=== PATIENT | female | born 1985 | race Caucasian/White ===

== ENCOUNTER 2016-11-25 09:35 | Outpatient (CLI) | payer BC | END 2016-11-25 09:36 | disposition home or self-care (01) | DX: R79.89 Other specified abnormal findings of blood chemistry (principal) ==

== ENCOUNTER 2018-01-20 20:52 | Day surgery (SDC) | payer BC ==
[2018-01-20 21:41] LABS: BILIRUBIN,URINE NEGATIVE (NEGATIVE); GLUCOSE, URINE (UA) NEGATIVE (NEGATIVE); KETONES,URINE (UA) NEGATIVE (NEGATIVE); LEUKOCYTE ESTERASE, URINE NEGATIVE (NEGATIVE); NITRITE,URINE NEGATIVE (NEGATIVE); OCCULT BLOOD,URINE NEGATIVE (NEGATIVE); PH,URINE 6.5 PH (5.0-7.5); PROTEIN,URINE NEGATIVE (NEGATIVE); UROBILINOGEN,URINE 0.2 (NORMAL) E.U./dL (NORMAL)
[2018-01-20 21:44] LABS: CLARITY,URINE CLEAR (CLEAR); HCG UR QUAL NEGATIVE
[2018-01-20 22:14] LABS: BASOPHILS # (AUTO) 0.1 10^3/uL (0.0-0.1); BASOPHILS % (AUTO) 0.7 %; EOSINOPHILS # (AUTO) 0.1 10^3/uL (0.0-0.7); EOSINOPHILS % (AUTO) 0.8 %; HGB - HEMOGLOBIN 13.4 g/dL (12.0-16.0); LYMPHOCYTES # (AUTO) 1.6 10^3/uL (1.5-3.5); LYMPHOCYTES % (AUTO) 16.5 %; MEAN CORPUSCULAR HEMOGLOBIN 29.4 pg (27.0-31.0); MEAN CORPUSCULAR HGB CONC 34.4 g/dL (32.0-36.0); MEAN CORPUSCULAR VOLUME 85.4 fL (81.0-99.0); MEAN PLATELET VOLUME 9.1 fL (7.9-10.8); MONOCYTES # (AUTO) 0.6 10^3/uL (0.0-1.0); NEUTROPHILS # (AUTO) 7.1 10^3/uL (1.5-6.6); PLT - PLATELET COUNT 161 10^3/uL (130-450); RED BLOOD COUNT 4.54 10^6/uL (4.20-5.40); RED CELL DISTRIBUTION WIDTH 13.1 % (12.0-15.0); WHITE BLOOD COUNT 9.4 x10^3/uL (4.8-10.8)
[2018-01-20 22:24] LABS: ALBUMIN 4.4 g/dL (3.2-5.5); ALBUMIN/GLOBULIN RATIO 1.8 (1.0-2.2); CALCIUM 9.4 mg/dL (8.5-10.3); CREATININE 0.8 mg/dL (0.4-1.0); TOTAL PROTEIN 6.9 g/dL (6.7-8.2)
--- NOTE | 2018-01-20 23:58 | Ultrasound Report ---
EXAM: PELVIC ULTRASOUND EXAM DATE: 01/20/2018 11:39 PM. CLINICAL HISTORY: Pelvic pain. COMPARISON: Pelvic ultrasound 05/10/2015. TECHNIQUE: Realtime transabdominal pelvic scan, with static image documentation. FINDINGS: Uterus: 7.8 x 4.4 x 5.6 cm, volume 100.6 cc. Anteverted position. Normal overall size and echotexture . Masses: None. Endometrium: 4 mm. Normal. Intrauterine device is in place. Cervix: Unremarkable. Right Ovary: 4.7 x 3.7 x 3.6 cm, volume 33.6 cc. Enlarged right ovary. Arterial blood flow seen in th e right ovary by spectral Doppler. Much of the right ovary does not have blood flow by color Doppler. Central complex cystic area measuring 3 x 1.7 cm in the enlarged right ovary, could be a collapsed c orpus luteum cyst. Differential includes central necrosis. Limited evaluation since no transvaginal i mages obtained. Left Ovary: Possible left ovary measuring 3.5 x 2.9 x 2.8 cm, volume 14.6 cc. Not well seen. Free Fluid: Moderate free fluid seen in the pelvis, appears to have some low level internal echoes. IMPRESSION: 1. Enlarged right ovary. Arterial blood flow seen in the right ovary by spectral Doppler. Much of the right ovary does not have blood flow by color Doppler. Central complex cystic area measuring 3 x 1.7 cm in the enlarged right ovary, could be a collapsed corpus luteum cyst. Differential includes centr al necrosis. Limited evaluation since no transvaginal images obtained. The right ovary is the area of pain for the patient. This could represent a right ovarian torsion versus hemorrhagic corpus luteum cyst/hemorrhagic cyst. Further evaluation could be obtained with transvaginal images or an MR without and with contrast. 2. Left ovary not well seen. 3. Moderate free fluid seen in the pelvis, appears to have some low level internal echoes, mildly com plex. RADIA The above findings were discussed with Dr. Lopez by Dr. Heidy Vaca at 23:51 hrs on 01/20/18. Referring Provider Line: [phone] SITE ID: [id number]
[2018-01-21] MEDS ORDERED: LORazepam 0.5 MG TABLET PO STA
[2018-01-21] MEDS ORDERED: oxyCOD/ACETAMIN 5 MG/325 MG TABLET PO STA
--- NOTE | 2018-01-21 01:15 | Ultrasound Report ---
EXAM: PELVIC ULTRASOUND TRANSVAGINAL EXAM DATE: 01/21/2018 12:47 AM. CLINICAL HISTORY: Pelvic pain. Enlarged right ovary, possible right ovarian torsion. Transvaginal ult rasound to further evaluate. COMPARISON: Pelvic ultrasound 01/20/2018. TECHNIQUE: Realtime transvaginal scan to provide greater detail of the right ovary, with static image documentation. FINDINGS: See the prior pelvic ultrasound report regarding the uterus and the left ovary. Prior trans abdominal images better demonstrate the moderate free fluid. Difficult transvaginal exam. Right Ovary: Large right ovary measuring 8.8 x 5.4 x 9 cm, volume 222.5 cc, appears to contain a hemo rrhagic corpus luteum cyst that measures 4.5 x 4 x 3.8 cm, volume of 39 cc. There is peripheral blood flow at the corpus luteum. There is a paucity of blood flow within much of the enlarged right ovary and these findings are concerning for right ovarian torsion. There appear to be a few follicles in th e right ovary. Free fluid is noted. IMPRESSION: Enlarged right ovary as described above with findings concerning for ovarian torsion. Dif ferential includes dense hematoma causing a masslike appearance adjacent to the right ovary from a ru ptured ovarian cyst. See above. RADIA The above findings were discussed with Dr. Lopez by Dr. eHidy Vaca at 01:06 hrs on 01/21/18. Referring Provider Line: [phone] SITE ID: [id number]
[2018-01-21] MEDS ORDERED: MORPHINE 10 MG/ML VIAL IVP STA (01:17)
--- NOTE | 2018-01-21 01:42 | ED Physician Documentation ---
PD HPI FEMALE - Stated complaint Stated Complaint: ABD PX - Chief complaint Chief Complaint: Abd Pain - History obtained from History obtained from: Patient, Family - History of Present Illness Timing - onset: Today Timing - details: Abrupt onset, Still present Associated symptoms: Abdominal pain, Pelvic pain. No: Vaginal bleeding, Vaginal discharge Contributing factors: No: Similar symptoms before: Has not had sx before Recently seen: Not recently seen - Additional information Additional information: Patient is a 32 year old female with no significant past medical history who is presenting to the emergency department for suprapubic pain. Patient states that it started tonight at rest. Patient reports that when she urinates it causes everything to spasm making everything worse. Patient denies any vaginal bleeding or vaginal discharge. Patient states that she has not had a menstrual cycle in two years. Review of Systems Constitutional: denies: Fever, Chills Eyes: reports: Reviewed and negative Ears: reports: Reviewed and negative Nose: reports: Reviewed and negative Throat: reports: Reviewed and negative Cardiac: reports: Reviewed and negative Respiratory: reports: Reviewed and negative GI: reports: Abdominal Pain. denies: Nausea, Vomiting : reports: Dysuria. denies: Hematuria, Discharge, Vaginal bleeding Skin: denies: Rash, Lesions Neurologic: denies: Generalized weakness, Focal weakness, Numbness Immunocompromised: denies: Immunocompromised PD PAST MEDICAL HISTORY - Past Medical History Past Medical History: Yes GI: Other - Past Surgical History Past Surgical History: No - Allergies Allergies/Adverse Reactions: Allergies Allergy/AdvReac Type Severity Reaction Status Date / Time Sulfa (Sulfonamide Allergy Unknown Verified 01/20/18 21:11 Antibiotics) - Social History Does the pt smoke?: No Smoking Status: Never smoker Does the pt drink ETOH?: No Does the pt have substance abuse?: No PD ED PE NORMAL - Vitals Vital signs reviewed: Yes - General General: Alert and oriented X 3, Well developed/nourished - HEENT HEENT: Atraumatic, PERRL - Neck Neck: Supple, no meningeal sign, No JVD - Cardiac Cardiac: RRR - Respiratory Respiratory: No respiratory distress - Abdomen Abdomen: Soft - Derm Derm: Normal color, No rash - Extremities Extremities: No deformity - Neuro Neuro: Alert and oriented X 3, No motor deficit, No sensory deficit, Normal speech Eye Opening: Spontaneous Motor: Obeys Commands Verbal: Oriented GCS Score: 15 - Psych Psych: Normal mood PD ED PE EXPANDED - General General: Alert, Anxious, In Pain - Abdomen Abdomen: Tender to palpation, Periumbilical, RLQ, Suprapubic Results - Vitals Vitals: Vital Signs - 24 hr 01/20/18 01/21/18 21:07 01:40 Temperature 36.7 C 36.9 C Heart Rate 96 84 Respiratory 18 16 Rate Blood Pressure 142/86 H 126/77 O2 Saturation 98 98 Oxygen O2 Source Room air - Labs Labs: Laboratory Tests 01/20/18 01/20/18 01/20/18 21:35 22:03 22:03 WBC 9.4 RBC 4.54 Hgb 13.4 Hct 38.8 MCV 85.4 MCH 29.4 MCHC 34.4 RDW 13.1 Plt Count 161 MPV 9.1 Neut # 7.1 H Lymph # 1.6 Morris # 0.6 Eos # 0.1 Baso # 0.1 Absolute Nucleated RBC 0.01 Nucleated RBC % 0.1 Sodium 139 Potassium 3.5 Chloride 106 Carbon Dioxide 23 Anion Gap 10.0 BUN 19 Creatinine 0.8 Estimated GFR (MDRD) 84 L Glucose 139 H Calcium 9.4 Total Bilirubin 1.0 AST 31 ALT 51 Alkaline Phosphatase 25 L Total Protein 6.9 Albumin 4.4 Globulin 2.5 Albumin/Globulin Ratio 1.8 Lipase 22 Urine Color YELLOW Urine Clarity CLEAR Urine pH 6.5 Ur Specific [place] 1.020 Urine Protein NEGATIVE Urine Glucose (UA) NEGATIVE Urine Ketones NEGATIVE Urine Occult Blood NEGATIVE Urine Nitrite NEGATIVE Urine Bilirubin NEGATIVE Urine Urobilinogen 0.2 (NORMAL) Ur Leukocyte Esterase NEGATIVE Ur Microscopic Review NOT INDICATED Urine Culture Comments NOT INDICATED Urine HCG, Qual NEGATIVE - Rads (name of study) pelvic ultrasound Radiology: Final report received, Discussed with rads (enlarged right ovary, doppler flow not appreciated, concernging for torsion. ), See rad report PD MEDICAL DECISION MAKING - ED course Complexity details: reviewed old records, reviewed results, re-evaluated patient , considered differential, d/w patient, d/w internal consultant ED course: Patient was seen and examined at bedside. urine was collected and showed no sign of infection. labs were drawn and ultrasound was ordered. When patient returned from imaging the radiologist called and said there were some worrisome signs for torsion or an enlarged ovary. patient had originally not been able to tolerate a transvaginal ultrasound. Patient was treated with percocet and ativan and sent for imaging. When patient returned the findings were again discussed with the radiologist and were worrisome for torsion. window cutter OB, Dr. Lew was contacted and the case was discussed with her. Patient was admitted under her service for further evaluation and care. Departure - Departure Disposition: ED Transfer to [facility] Clinical Impression: Ovarian torsion Condition: Stable
[2018-01-21] MEDS ORDERED: MIDAZOLAM 2 MG/2 ML VIAL IVP ONE (03:00)
[2018-01-21] MEDS ORDERED: NEOSTIGMINE 1 MG/1 ML 10 ML MDV IVP ONE (03:00)
[2018-01-21] MEDS ORDERED: KETOROLAC 30 MG/ML VIAL IVP ONE (03:00)
[2018-01-21] MEDS ORDERED: SUCCINYLCHOLINE 200 MG/10 ML VIAL IVP ONE (03:00)
[2018-01-21] MEDS ORDERED: PROPOFOL 200 MG/20 ML VIAL IVP ONE (03:00)
[2018-01-21] MEDS ORDERED: ONDANSETRON 4 MG/2 ML VIAL IVP ONE (03:00)
[2018-01-21] MEDS ORDERED: GLYCOPYRROLATE 1 MG/5 ML VIAL IVP ONE (03:00)
[2018-01-21] MEDS ORDERED: ROCURONIUM 50 MG/5 ML VIAL IVP ONE (03:00)
[2018-01-21] MEDS ORDERED: DEXAMETHASONE 4 MG/ML VIAL IVP ONE (03:00)
--- NOTE | 2018-01-21 03:03 | PREOP HISTORY & PHYSICAL ---
IDENTIFICATION: A 32-year-old G1, P1-0-0-1, LMP 01/2012. HISTORY OF PRESENT ILLNESS: This is a patient of Rajni Rivera, who presented to [facility] Emergency Department. She was seen by Dr. Lopez. The patient states that she and her and Salvador were having sex this evening when about 20 minutes after they were done, she started having pain in the suprapubic area that was described as cramping. She states that she "never had pain like that before." The patient states that the pain was localized without any radiation. She had an intense period of pain, which was not helped with Aleve. She took a hot bath, which seemed to help a little bit. The patient states that she has tried to feel for her Mirena IUD strings, but could not feel it. She does admit that sometimes she is unable to feel the strings. Unfortunately, due to the pain, she really could not do a good examination. The patient states that the cramping is described as constant and worse with activity, particularly when she bends at the hips. The pain at its worse was rated 10/10. She states that the pain feels like the pain is in her low pelvic area at the level of the pubic bone. She feels like it is at her cervix as well with some direction of the pain going towards her bottom. She did have nausea with significant amount of pain, but did not have any vomiting. She also denied any dysuria, fevers, chills, diarrhea or constipation. She is accompanied today by her , Salvador as well as her 6-year-old daughter, Marie. PAST MEDICAL HISTORY: Nonalcoholic fatty liver. She denies diabetes, hypertension, thyroid disorder, anxiety, depression, or asthma. PAST SURGICAL HISTORY: None. ALLERGIES: SULFA, WHICH SHE HAS HIVES. MEDICATIONS 1. Multivitamin. 2. P.r.n. Aleve for body aches, particularly in the joints. SOCIAL HISTORY: She denies any tobacco, alcohol or illicit drug use. 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 Her is Salvador and they have a 6-year-old daughter, Marie. PAST SURGICAL HISTORY: One spontaneous vaginal delivery at 42 weeks' gestation. Baby weighed 8 pounds 11 ounces. They most likely will not have any more children. PAST GYNECOLOGY HISTORY: The patient denies any abnormal Paps or sexually transmitted diseases. She recently had a Mirena IUD in January 2012 and had it replaced in March 2017. She has not had a menstrual cycle since the original Mirena IUD was placed. The patient recalls, however, that prior to her Mirena IUD insertion she did have monthly menses. Though they are not particularly heavy, they were exquisitely painful. FAMILY HISTORY: She denies any female carcinomas. OBJECTIVE VITAL SIGNS: Temperature is 98.4, heart rate 84, blood pressure 126/77, respirations 16, O2 saturations 98. GENERAL: The patient is a well-developed, well-nourished, female, in no apparent distress. She is alert and oriented x3. ABDOMEN: Soft without any peritoneal signs. She does have some tenderness to palpation. CARDIOVASCULAR: Regular, no murmurs or rubs. LUNGS: Lungs are clear to auscultation bilaterally. EXTREMITIES: No edema. LABORATORY DATA: White count is 9.4, H and H 13.4, hematocrit 38.8, platelet 161, potassium 3.5, BUN 19, creatinine 0.8, glucose 139, AST 31, ALT 51, alkaline phosphatase 25. Urinalysis is normal and the urine hCG is negative. A 01/21/2018 ultrasound reveals a right ovary measuring 8.8 x 5.4 x 9 cm, volume of 222, appears to contain hemorrhagic corpus luteum cyst that measures 4.5 x 4 x 3.8 cm. There is peripheral blood flow at the corpus luteum. There is paucity of blood flow within much of the enlarged right ovary and these findings are concerning for right ovarian torsion. There appears to be few follicles in the right ovary. Moderate free fluid. ASSESSMENT 1. A 32-year-old G1, P1-0-0-1. 2. Abdominal pain, ovarian torsion versus ruptured hemorrhagic cyst. PLAN 1. Discussed with the patient and her , Salvador, my recommendation is to proceed with a diagnostic laparoscopy with possible ovarian cystectomy. I discussed with the patient the risks, benefits, alternatives, indications, expectations of surgery. Included in our discussion were the risks of hemorrhage , infection, and damage to surrounding organs. With respect to damage to surrounding organs, this may be an inadvertent laceration, cauterization or ligation to the adjacent intestines, bladders and ureters. In rare cases, ovarian torsion will result in the of the ovary, which I would perform a unilateral salpingo-oophorectomy. Also, in cases in which hemostasis to the ovary is not possible, I would proceed to a unilateral salpingo-oophorectomy. After all of the patient's questions were answered to her satisfaction, she verbalized her desire to proceed with a diagnostic laparoscopy with possible unilateral ovarian cystectomy. Consent forms have been signed. 2. Anticipate discharging the patient to home after postoperative criteria are met. The patient will have a prescription for ibuprofen for her and I will recommend [id number] Tylenol. A handwritten prescription will be available for the patient specifically for Vicodin for any breakthrough pain she may experience. 3. The patient will see me at [facility] in 2 weeks for routine postop visit. She is to call if she has any worsening fevers, chills, abdominal pain or vaginal bleeding. cc: AMANDA Mcconnell TD: 01/21/2018 03:02 MTDAngelique
[2018-01-21] MEDS ORDERED: BUPIVACAINE 0.25% PF 30 ML VIAL ONE (03:22)
[2018-01-21] MEDS ORDERED: BUPIVACAINE 0.25% PF 30 ML VIAL SUBQ ONE ×2 (03:27)
[2018-01-21] MEDS ORDERED: LACTATED RINGERS 1,000 ML IV ONE ×4 (03:28→04:09)
--- NOTE | 2018-01-21 04:48 | OPERATIVE REPORT ---
Operative Report - Other Other Information/Narrative: Date of Operation: 01/21/2018 Surgeon: Johanna Lew DO FACOG Art Critic: None Lead Die Molder: Niyah Mcallister CRNA Anesthesia: GET Pre-op Dx: 1. 32 2. Abdominal pain Post-op Dx: 1. 32 yo 2. Hemoperitoneum 2. Ruptured left ovarian cyst Procedure: Laparoscopic left ovarian cystectomy Findings: 1. Hemoperitoneum 2. Ruptured left ovarian cyst, no evidence of ovarian torsion 3. Normal appendix 4. Normal liver edge Specimens: Left ovarian cyst wall Drains: None EBL: 400 cc Complications: None Dictation: [id number]
[2018-01-21] MEDS ORDERED: fentaNYL 100 MCG/2 ML VIAL ONE (05:37)
[2018-01-21] MEDS ORDERED: HYDROcod/ACETAM 5/325 MG TABLET ONE (05:59)
[2018-01-21 06:10] VITALS: BP 133/65
--- NOTE | 2018-01-21 07:23 | OPERATIVE REPORT ---
DATE OF OPERATION: 01/21/2018 PREOPERATIVE DIAGNOSES: 1. A 32-year-old G1, P1-0-0-1. 2. Abdominal pain. POSTOPERATIVE DIAGNOSES: 1. A 32-year-old G1, P1-0-0-1. 2. Hemoperitoneum. 3. Ruptured left ovarian cyst. PROCEDURE: Laparoscopic left ovarian cystectomy. SURGEON: Johanna Lew DO, FACOG AUTOMOTIVE ELECTRICAL HELPER: None. UTILITY TENDER CARDING: Martín Santacruz CRNA ANESTHESIA: General endotracheal tube. FINDINGS: 1. Hemoperitoneum. 2. Ruptured left ovarian cyst without any evidence of ovarian torsion. 3. Normal appendix. 4. Normal liver edge. SPECIMENS: Left ovarian cyst wall. DRAINS: None. ESTIMATED BLOOD LOSS: 400 mL COMPLICATIONS: None. BRIEF HISTORY AND INDICATIONS: The patient presented to [facility] Emergency Department with complaints of acute onset of abdominal pain. The patient was seen by Dr. Terry Lopez, which revealed ultrasound findings suspicious for an ovarian torsion. It was also noted that there was a moderate amount of free fluid in the abdomen. I have discussed with Henny the risks, benefits, alternatives, indications, expectations of diagnostic laparoscopy with possible ovarian cystectomy, including the risks were hemorrhage, infection , damage to surrounding organs, which could be an inadvertent laceration, cauterization or ligation of the adjacent intestines, bladder and ureters. In addition, if bleeding was unable to be controlled an oophorectomy may occur. After all the patient's questions were answered to her satisfaction, she verbalized her desire to proceed with surgery. Consent forms have been signed. OPERATION IN DETAIL: The patient was identified and consented, taken to the operating room where IV access was already in place. She was given sequential compression devices which were placed on her legs and turned on. She was then given satisfactory general endotracheal tube anesthesia as per Martín Santacruz. Antibiotics were not indicated in this case. Timeout was performed, which correctly identified the patient, site of procedure and procedure itself. Three laparoscopic port sites were first identified. They were all 5 mm in length in the subumbilical fold, right lower quadrant and left lower quadrant. The two lower quadrant port sites were determined by finding the respective anterior superior iliac spine and then moving two fingerbreadths superior and medial. All three port sites were injected with a total of 0.25% lidocaine without epinephrine. A total of 20 mL were used. Entrance into the abdomen was made directly with a Visiport camera. No trauma to intraabdominal organs were noted. CO2 gas was then used to insufflate the abdomen. Initial inspection of the pelvis showed a large amount of blood in the pelvis. There was active bleeding in a left ovarian cyst at the distal portion of the ovary. The bilateral tubes were within normal limits, as well as the right ovary. The uterus also appeared to be within normal limits. Appendix was visualized and it did not appear to be abnormal. There was normal liver edge and no signs of [id number]. The left ovarian rupture was then dealt with. The ovarian cyst wall was grasped and then shelled out. Bleeding continued to occur within the bed of the ovary. First I attempted to use Surgicel and placed it in the bleeding area. The bleeding continued to occur so the Surgicel was removed. With the LigaSure cautery was used and hemostasis was obtained. Since the Surgicel was still in the abdomen, this was replaced back into the bed of the ovarian cyst. The abdomen was irrigated and found to be hemostatically stable. At this point in time, the procedure had been completed. All instruments were removed out of the abdomen and the CO2 was allowed to egress through the trocar ports thus relieving the pneumoperitoneum. All three laparoscopic port sites were then reapproximated with 4-0 Monocryl and Dermabond placed on top of the incisions. The patient tolerated procedure well, was taken back to the recovery room in stable condition. I spoke to her , Salvador, about the procedure and gave him a copy of the laparoscopic pictures. I explained to Salvador that the patient is to take her prescription of ibuprofen 800 mg and then a prescription for Vicodin will be available to her for any breakthrough pain. The patient is to see me at [facility] in 2 weeks for routine postoperative visit. Salvador is to call should the patient have any worsening fevers, chills or abdominal pain. The patient will be discharged to home after postoperative criteria are met. All sponge, lap and needle counts were correct x2 as per nurse report. cc: AMANDA Mcconnell TD: 01/21/2018 07:22 [facility] CENTER[facility]ique
== END 2018-01-21 02:16 | disposition home or self-care (01) ==
LOC: ED 20:52 → SDS 01-21 02:15
PROVIDERS: ATTEND Obstetrics & Gynecology
PROC: 0UB14ZZ Excision of Left Ovary, Percutaneous Endoscopic Approach (ICD-10-PCS; principal; 2018-01-21 03:00)
DX: N83.12 Corpus luteum cyst of left ovary (principal); K66.1 Hemoperitoneum
CPT/HCPCS: 36415; 58662; 76830; 76856; 80053; 81003; 81025; 83690; 85025; 93976; 96374; 99283; 99285; A9270; J0330; J7120; 81001; 87086; 99284

== ENCOUNTER 2018-03-05 07:03 | Outpatient (CLI) | payer BC ==
[2018-03-05 13:02] LABS: ALBUMIN 4.7 g/dL (3.2-5.5); ALBUMIN/GLOBULIN RATIO 1.7 (1.0-2.2); ALKALINE PHOSPHATASE 29 IU/L (42-121); ALT ALANINE AMINOTRANSFERASE 52 IU/L (10-60); AST ASPARTATE AMINOTRANSFERASE 34 IU/L (10-42); BILIRUBIN,TOTAL 1.3 mg/dL (0.2-1.0); BUN - BLOOD UREA NITROGEN 15 mg/dL (6-20); CALCIUM 9.4 mg/dL (8.5-10.3); CARBON DIOXIDE - CO2 24 mmol/L (21-32); CHLORIDE 106 mmol/L (101-111); CHOL/HDL RATIO 4.8 (<4.4); CHOLESTEROL 177 mg/dL; CREATININE 0.8 mg/dL (0.4-1.0); GFR - MDRD 84 (>89); GLUCOSE 110 mg/dL (70-100); HDL CHOLESTEROL 37 mg/dL; LDL CHOLESTEROL,CALCULATED 111 mg/dL; SODIUM 136 mmol/L (135-145); TOTAL PROTEIN 7.5 g/dL (6.7-8.2); VLDL CHOLESTEROL 29 mg/dL
== END 2018-03-05 07:04 | disposition home or self-care (01) ==
LOC: LAB.WCP 07:03
PROVIDERS: ATTEND Family Medicine
DX: K76.0 Fatty (change of) liver, not elsewhere classified (principal); E78.5 Hyperlipidemia, unspecified; E28.2 Polycystic ovarian syndrome
CPT/HCPCS: 36415; 80053; 80061; 83721; 84443

== ENCOUNTER 2019-03-01 10:00 | Outpatient (CLI) | payer BC ==
[2019-03-01 10:26] LABS: BASOPHILS % (AUTO) 0.6 %; EOSINOPHILS # (AUTO) 0.1 10^3/uL (0.0-0.7); EOSINOPHILS % (AUTO) 2.2 %; HGB - HEMOGLOBIN 14.3 g/dL (12.0-16.0); LYMPHOCYTES # (AUTO) 1.3 10^3/uL (1.5-3.5); LYMPHOCYTES % (AUTO) 22.9 %; MEAN CORPUSCULAR HEMOGLOBIN 29.3 pg (27.0-31.0); MEAN CORPUSCULAR HGB CONC 34.3 g/dL (32.0-36.0); MEAN CORPUSCULAR VOLUME 85.4 fL (81.0-99.0); MEAN PLATELET VOLUME 9.1 fL (7.9-10.8); MONOCYTES # (AUTO) 0.3 10^3/uL (0.0-1.0); MONOCYTES % (AUTO) 5.9 %; NEUTROPHILS # (AUTO) 3.9 10^3/uL (1.5-6.6); NEUTROPHILS % (AUTO) 68.4 %; PLT - PLATELET COUNT 157 10^3/uL (130-450); RED BLOOD COUNT 4.88 10^6/uL (4.20-5.40); RED CELL DISTRIBUTION WIDTH 13.7 % (12.0-15.0); WHITE BLOOD COUNT 5.6 x10^3/uL (4.8-10.8)
[2019-03-01 10:41] LABS: HEMOGLOBIN A1C 0.57 g/dL; HEMOGLOBIN A1C % 5.4 % (4.6-6.2)
[2019-03-01 10:49] LABS: ALBUMIN 4.3 g/dL (3.2-5.5); ALBUMIN/GLOBULIN RATIO 1.5 (1.0-2.2); ALKALINE PHOSPHATASE 28 IU/L (42-121); ALT ALANINE AMINOTRANSFERASE 66 IU/L (10-60); AST ASPARTATE AMINOTRANSFERASE 34 IU/L (10-42); BILIRUBIN,TOTAL 2.8 mg/dL (0.2-1.0); BUN - BLOOD UREA NITROGEN 13 mg/dL (6-20); CALCIUM 9.4 mg/dL (8.5-10.3); CARBON DIOXIDE - CO2 25 mmol/L (21-32); CHLORIDE 106 mmol/L (101-111); CHOL/HDL RATIO 4.2 (<4.4); CHOLESTEROL 156 mg/dL; CREATININE 0.7 mg/dL (0.4-1.0); GFR - MDRD 98 (>89); GLUCOSE 106 mg/dL (70-100); HDL CHOLESTEROL 37 mg/dL; LDL CHOLESTEROL,CALCULATED 103 mg/dL; LDL/HDL RATIO 2.8 (<4.4); SODIUM 139 mmol/L (135-145); TOTAL PROTEIN 7.1 g/dL (6.7-8.2); VLDL CHOLESTEROL 16 mg/dL
== END 2019-03-01 10:01 | disposition home or self-care (01) ==
LOC: LAB 10:00
PROVIDERS: ATTEND Family Medicine
DX: E28.2 Polycystic ovarian syndrome (principal); K76.0 Fatty (change of) liver, not elsewhere classified; E78.5 Hyperlipidemia, unspecified; E66.9 Obesity, unspecified
CPT/HCPCS: 36415; 80053; 80061; 83036; 83721; 84443; 85025